=== PATIENT | male | born 1960 | race American Indian/Alaskan Native ===

== ENCOUNTER 2018-01-10 17:42 | Emergency (ER) | payer OTHER ==
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
[2018-01-10 18:10] VITALS: BP 143/85; PULSE 90; RESP 16; TEMP 98.7; O2SAT 98
[2018-01-10] MEDS ORDERED: Bacitracin 500 Units/gm Oint Foilpak UD TOP ONE (18:12)
[2018-01-10] MEDS ORDERED: Bacitracin 500 Units/gm Oint Foilpak UD ONE (18:13)
== END 2018-01-10 18:47 | disposition home or self-care (01) ==
LOC: C.ER 17:42
DX: S40.812A Abrasion of left upper arm, initial encounter (principal); V89.2XXA Person injured in unspecified motor-vehicle accident, traffic, initial encounter; H93.12 Tinnitus, left ear